=== PATIENT | male | born 1960 | race Caucasian/White ===

== ENCOUNTER 2017-11-28 21:46 | Emergency (ER) | payer OTHER ==
[2017-11-28 21:54] VITALS: RESP 16; TEMP 97.7
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
[2017-11-29 00:28] VITALS: BP 121/80; PULSE 88; O2SAT 95
== END 2017-11-29 00:28 | disposition home or self-care (01) ==
LOC: EDUNIT# → EEVIPCON 21:46
DX: F10.920 Alcohol use, unspecified with intoxication, uncomplicated (principal); I10 Essential (primary) hypertension; Z04.1 Encounter for examination and observation following transport accident; V48.0XXA Car driver injured in noncollision transport accident in nontraffic accident, initial encounter; Y92.89 Other specified places as the place of occurrence of the external cause; Y93.89 Activity, other specified

== ENCOUNTER 2019-02-12 21:57 | Emergency (ER) | payer OTHER ==
[2019-02-12] MEDS ORDERED: CHLORHEXIDINE GLUC HIBICLENS 118 ML BTL TP ONE (23:02)
--- NOTE | 2019-02-12 23:18 | EDPHY ---
H & P Time Seen by Provider: 02/12/19 22:26 HPI/ROS: Chief complaint: Surgical incision check History of present illness: This is a 58-year-old male who presents to the emergency department for evaluation of a surgical incision to his right hip from a right total hip replacement that occurred 6 days ago [facility]. He states over the last few days he has noticed increasing discharge from the wound. It has soaked the surgical wound covering. He has talked with the on- call nurse for the orthopedic group who stated this was normal. He denies increasing pain in the region. He denies pustular discharge. He denies fevers , he has been monitoring his temperature constantly. Smoking Status: Never smoked Physical Exam: General: Alert, nontoxic. Skin: There is a vertically oriented large surgical incision to the right hip with sarita in place. There is no dehiscence. There is no discharge from the wound. The tissue appears healthy. There is no surrounding erythema or edema. No warmth or tenderness on palpation. Constitutional: Initial Vital Signs Temperature (C) 36.7 C 02/12/19 22:11 Heart Rate 82 02/12/19 22:11 Respiratory Rate 16 02/12/19 22:11 Blood Pressure 124/75 H 02/12/19 22:11 O2 Sat (%) 95 02/12/19 22:11 O2 Delivery Mode Room Air Allergies/Adverse Reactions: bee venom protein (honey bee) Allergy (Verified 02/12/19 22:10) Home Medications: Medication Instructions Recorded [facility] 03/04/16 Allopurinol 02/12/19 Aspirin 81mg (*) 02/12/19 Flexeril 10 MG (*) 02/12/19 Lovenox 40 MG (*) 02/12/19 Multivitamin 02/12/19 Percocet 5-325 mg Tablet 02/12/19 amLODIPine BESYLATE/BENAZEPRIL 02/12/19 MDM/Departure - MDM Medications Given: Discontinued Medications Chlorhexidine Gluconate (Hibiclens) Confirm Administered Dose 1 btl TP .STK-MED ONE Stop: 02/12/19 23:03 Last Admin: 02/12/19 23:19 Dose: 2 oz ED Course/Re-evaluation: Patient seen under the supervision of my secondary supervising physician Dr. Efrain Johnson. Patient presents to the emergency department for surgical incisions site wound recheck. The incision appears to be well healing. Sarita are in place. No dehiscence. No discharge from the wound. No surrounding erythema or edema. No tenderness. No warmth. I do not suspect a surgical incisions site infection at this time. I have consulted with [facility] orthopedic doctor, who is comfortable with patient being discharged home. Home care is discussed. They are to follow up with Orthopedics for for recheck. Strict return precautions are given. The patient voiced understanding and agreement with plan. Differential Diagnosis: Included but not limited to postsurgical wound discharge, postsurgical wound infection - Depart Disposition: Home, Routine, Self-Care Clinical Impression: Encounter for wound re-check Condition: Good Instructions: Staple Care (ED) Additional Instructions: Follow-up with your orthopedic surgeon as scheduled for continued evaluation and care If symptoms worsen or new symptoms develop return to the emergency room for recheck Referrals: Paco Chavez MD [Primary Care Provider] - As per Instructions
[2019-02-12 23:24] VITALS: BP 129/77
== END 2019-02-12 23:22 | disposition home or self-care (01) ==
DX: Z47.1 Aftercare following joint replacement surgery (principal); Z96.641 Presence of right artificial hip joint